=== PATIENT | female | born 1995 | race Caucasian/White ===

== ENCOUNTER 2020-02-17 04:20 | Emergency (ER) | payer MEDICAID ==
[~2020-02-17] VITALS: Ht 157.5 cm; Wt 45.4 kg
[2020-02-17 04:48] VITALS: BP 124/76
[2020-02-17 04:58] VITALS: BP 124/76
== END 2020-02-17 05:23 | disposition home or self-care (01) ==
LOC: MED 04:20
DX: J02.9 Acute pharyngitis, unspecified (principal); R03.0 Elevated blood-pressure reading, without diagnosis of hypertension; Z20.828 Contact with and (suspected) exposure to other viral communicable diseases
CPT/HCPCS: 99283; U0003

== ENCOUNTER 2020-11-25 13:20 | Emergency (ER) | payer MEDICAID, SELFPAY ==
[~2020-11-25] VITALS: Ht 157.5 cm; Wt 54.4 kg
[2020-11-25 13:48] VITALS: BP 102/80
[2020-11-25] MEDS ORDERED: PROM118S5 PO (14:34)
[2020-11-25] MEDS ORDERED: ACET-10509 PO (14:34)
[2020-11-25 14:50] VITALS: BP 109/66
--- NOTE | 2020-11-25 14:50 | NUR ---
Patient discharged, VITAL SIGNS REVIEWED BY MONO LITTLEJOHN TO D/C. Written and verbal after care instructions given and explained. Patient alert, oriented and verbalized understanding of instructions. Ambulatory with steady gait. All questions addressed prior to discharge. ID band removed. Patient advised to follow up with PMD. Rx of TYLENOL EXTRA STRENGTH AND PROMETHAZINE SYRUP given. Patient educated on indication of medication including possible reaction and side effects. Opportunity to ask questions provided and answered.
--- NOTE | 2020-11-25 14:50 | NUR ---
NO NURSING INTERVENTIONS PROVIDED.
== END 2020-11-25 14:50 | disposition home or self-care (01) ==
LOC: MED 13:20
DX: J06.9 Acute upper respiratory infection, unspecified (principal); Z20.822 Contact with and (suspected) exposure to COVID-19; Z79.899 Other long term (current) drug therapy
CPT/HCPCS: 99283; U0003